=== PATIENT | female | born 1980 | race Caucasian/White ===

== ENCOUNTER → 2017-11-14 | Outpatient (CLI) | payer MEDICAID | LOC: FIMAGING 13:46 | PROVIDERS: ATTEND Internal Medicine | DX: G44.59 Other complicated headache syndrome (principal); E23.6 Other disorders of pituitary gland; Z85.43 Personal history of malignant neoplasm of ovary ==

== ENCOUNTER 2018-09-27 17:12 | Emergency (ER) | payer MEDICAID, OTHER ==
[2018-09-27] MEDS ORDERED: KETOROLAC 30 MG/1 ML SDV IVP ONE (17:56)
[2018-09-27] MEDS ORDERED: DEXAMETHASONE 10 MG/ML VIAL IVP ONE (17:56)
[2018-09-27] MEDS ORDERED: NS 1,000 ML IV ONE (17:56)
[2018-09-27] MEDS ORDERED: METOCLOPRAMIDE 10 MG/2 ML VIAL IVP ONE (17:56)
[2018-09-27] MEDS ORDERED: IOPAMIDOL (ISOVUE 370) 100 ML BTL IV ONE (18:01)
--- NOTE | 2018-09-27 18:03 | EDPHY ---
H & P Stated Complaint: WEAKNESS, varela Time Seen by Provider: 09/27/18 17:51 HPI/ROS: CHIEF COMPLAINT: Trouble with speech and feeling drunk HISTORY OF PRESENT ILLNESS: Patient is a 38-year-old female with a history of migraines who states that she had a migraine today that was somewhat typical. Pain primarily on the right side mild nausea. No vision changes. However at around 4:00 a.m. She also noticed some tingling in her left face and left arm. This lasted for about 5 min then resolved. When her roommate came home he noticed that she seemed to have some trouble speaking and had slurred speech. He told her she needed to come to the ER. She states that her headache is now resolved and that her speech is improving. Roommate agrees that she is now speaking more clearly but still speaks slow compared to baseline. Her NIH stroke score is 0 at triage. She has not had migraines before the involved paresthesias or speech deficits. Severity: Moderate Modifying factors: None REVIEW OF SYSTEMS: Constitutional: denies: chills, fever, recent illness, recent injury EENTM: denies: blurred vision, double vision, nose congestion Respiratory: denies: cough, shortness of breath Cardiac: denies: chest pain, irregular heart rate, lightheadedness, palpitations Gastrointestinal/Abdominal: denies: abdominal pain, diarrhea, nausea, vomiting, blood streaked stools Genitourinary: denies: dysuria, frequency, hematuria, pain Musculoskeletal: denies: joint pain, muscle pain Skin: denies: lesions, rash, jaundice, bruising Neurological: See HPI Hematologic/Lymphatic: denies: blood clots, easy bleeding, easy bruising Immunologic/allergic: denies: HIV/AIDS, transplant 10 systems reviewed and negative except as noted EXAM: GENERAL: Well-appearing, well-nourished and in no acute distress. HEAD: Atraumatic, normocephalic. EYES: Pupils equal round and reactive to light, extraocular movements intact, sclera anicteric, conjunctiva are normal. ENT: TMs normal, nares patent, oropharynx clear without exudates. Moist mucous membranes. NECK: Normal range of motion, supple without lymphadenopathy or JVD. LUNGS: Breath sounds clear to auscultation bilaterally and equal. No wheezes rales or rhonchi. HEART: Regular rate and rhythm without murmurs, rubs or gallops. ABDOMEN: Soft, nontender, normoactive bowel sounds. No guarding, no rebound. No masses appreciated. BACK: No CVA tenderness, no spinal tenderness, step-offs or deformities EXTREMITIES: Normal range of motion, no pitting or edema. No clubbing or cyanosis. NEUROLOGICAL: NIH 0, Cranial nerves II through XII grossly intact. Normal speech, normal gait. 5/5 strength, normal movement in all extremities, normal sensation, normal reflexes, able to answer all questions appropriately. No trouble with word finding. No dysphagia. No pronator drift. No neglect PSYCH: Normal mood, normal affect. SKIN: Warm, dry, normal turgor, no visible rashes or lesions. Source: Patient Exam Limitations: No limitations - Personal History Current Tetanus/Diphtheria Vaccine: Unsure Current Tetanus Diphtheria and Acellular Pertussis (TDAP): Unsure - Medical/Surgical History Hx Asthma: No Hx Chronic Respiratory Disease: No Hx Diabetes: No Hx Cardiac Disease: No Hx Renal Disease: No Hx Cirrhosis: No Hx Alcoholism: No Hx HIV/AIDS: No Hx Splenectomy or Spleen Trauma: No Other PMH: migraines, ovarian CA, - Family History Significant Family History: No pertinent family hx - Social History Smoking Status: Never smoked Alcohol Use: None Constitutional: Initial Vital Signs Temperature (C) 36.4 C 09/27/18 17:16 Heart Rate 57 L 09/27/18 17:16 Respiratory Rate 16 09/27/18 17:16 Blood Pressure 117/82 H 09/27/18 17:16 O2 Sat (%) 100 09/27/18 17:16 O2 Delivery Mode Room Air Allergies/Adverse Reactions: No Known Allergies Allergy (Unverified 09/27/18 17:16) Home Medications: Medication Instructions Recorded Excedrin Tablet (*) 09/27/18 Lexapro 09/27/18 Prochlorperazine Maleate 10 mg PO TID #30 tab 09/27/18 [Compazine 10mg (*)] Medical Decision Making - Diagnostics Imaging: Discussed imaging studies w/ order caller Radiologist ED Course/Re-evaluation: The patient's symptoms are consistent with a migraine however there are unusual migraine type for her. They are improving and almost absent now. She will not be a tPA candidate and I do not think she is having an acute ischemic event. Will order medications and imaging. 8:50 p.m. the patient feels completely better. We discussed her imaging which is reassuring. She would like a prescription for Compazine. We discussed follow-up with Neurology. Discussed indications for returning. Differential Diagnosis: Partial list of the Differential diagnosis considered include but were not limited to; migraine, dissection, TIA and although unlikely based on the history and physical exam, I also considered CVA, infection. - Data Points Laboratory Results: Laboratory Results 09/27/18 19:44 09/27/18 19:44 Medications Given: Discontinued Medications Dexamethasone (Decadron Injection) 10 mg IVP EDNOW ONE Stop: 09/27/18 17:57 Last Admin: 09/27/18 18:38 Dose: 10 mg Haloperidol Lactate (Haldol Injection) 2.5 mg IVP EDNOW ONE Stop: 09/27/18 20:45 Last Admin: 09/27/18 20:54 Dose: 2.5 mg Sodium Chloride (Ns) 1,000 mls @ 0 mls/hr IV ONCE ONE; Wide Open PRN Reason: Protocol Stop: 09/27/18 17:57 Last Admin: 09/27/18 18:35 Dose: 1,000 mls Ketorolac Tromethamine (Toradol) 30 mg IVP EDNOW ONE Stop: 09/27/18 17:57 Last Admin: 09/27/18 18:36 Dose: 30 mg Metoclopramide HCl (Reglan Injection) 10 mg IVP EDNOW ONE Stop: 09/27/18 17:57 Last Admin: 09/27/18 18:45 Dose: 10 mg Point of Care Test Results: Chemistry 09/27/18 09/27/18 19:33 18:35 POC Sodium 134 mEq/L L mEq/L (135-145) POC Potassium 3.2 mEq/L L mEq/L (3.3-5.0) POC Chloride 95 mEq/L L mEq/L (97-110) POC Total CO2 24 mEq/L mEq/L (22-31) POC BUN 7 mg/dL mg/dL (7-23) POC Creatinine 0.6 mg/dL mg/dL (0.6-1.0) POC Glucose 77 mg/dL mg/dL (70-100) POC Troponin I 0.01 ng/mL ng/mL (0.00-0.08) ISTAT H&H 09/27/18 19:33 POC Hgb 13.6 gm/dL gm/dL (12.6-16.3) POC Hct 40 % % (38-47) Departure - Departure Disposition: Home, Routine, Self-Care Clinical Impression: Migraine Qualifiers: Migraine type: other Status migrainosus presence: without status migrainosus Intractability: not intractable Qualified Code(s): G43.809 - Other migraine, not intractable, without status migrainosus Condition: Fair Instructions: Prochlorperazine (By mouth), Migraine Headache (ED) Referrals: NONE *PRIMARY CARE P,. [Primary Care Provider] - As per Instructions Calos Otero DO [Medical Doctor] - 5-7 days, if not improved Prescriptions: Prochlorperazine Maleate [Compazine 10mg (*)] 10 mg PO TID #30 tab
[2018-09-27 18:47] LABS: INR 1.14 (0.83-1.16); PROTIME(PATIENT) 14.1 SEC (12.0-15.0)
[2018-09-27 19:55] LABS: PLATELET COUNT 242 10^3/uL (150-400)
[2018-09-27 20:24] VITALS: BP 103/61
[2018-09-27] MEDS ORDERED: HALOPERIDOL LACT 5 MG/ML INJ IVP ONE (20:44)
== END 2018-09-27 21:07 | disposition home or self-care (01) ==
DX: G43.909 Migraine, unspecified, not intractable, without status migrainosus (principal)
CPT/HCPCS: 80305; 82435-PO; 82565-PO; 82947-PO; 84132-PO; 84295-PO; 84484-ER; 84520-PO; 85014-ER; 96374; G0480; J1100; J1630; J1885; J2765; Q9967